=== PATIENT | female | born 1950 | race Caucasian/White ===

== ENCOUNTER 2020-04-29 09:44 | Inpatient (IN) | payer MEDICARE, BC ==
[~2020-04-29] VITALS: Ht 165.1 cm; Wt 120.2 kg
[~2020-04-29 09:44] MED LIST: AMBIEN CR12.5 MG PO; AMLODIPINE BESY10 MG PO; AUGMENTIN 875-1 EACH PO; BACTRIM 400-801 EACH PO; CARAFATE 1 GM TA1 GM PO; CHLORHEXIDINE 0.12% PO; DIFLUCAN150 MG PO; GLIPIZIDE ER10 MG PO; HYDROCODON-ACE1 EAC6 PO; JANUVIA 100 MG100 MG PO; JANUVIA50 MG PO; K-DUR TAB 20 M20 MEQ PO; KEFLEX CAP 500500 MG PO; LANTUS SOL100 UNIT/1 SQ; LASIX TAB 20 MG20 MG PO; NEURONTIN300 MG PO; PHENERGAN 25 MG25 M1 PO; PROTONIX 40 MG40 M1 PO; PROZAC 20 MG CA20 MG PO; SYNTHROID125 MCG PO; TRAMADOL HCL50 MG PO; TRANDATE 300 M300 MG PO; VALIUM 5 MG TAB5 MG PO
[2020-04-29 11:13] LABS: HEMOGLOBIN 9.1 gm/dl (12.3-15.3); RED BLOOD COUNT 3.39 M/UL (4.00-5.10); WHITE BLOOD COUNT 11.1 K/UL (4.5-11.0)
[2020-04-29 11:48] LABS: BUN/CREATININE RATIO 15 (0-10)
[2020-04-29] MEDS ORDERED: JANUVIA100 MG PO (17:02)
[2020-04-29] MEDS ORDERED: LASIX 40 MG TAB40 MG PO (17:07)
[2020-04-30 02:49] LABS: HEMOGLOBIN 8.7 gm/dl (12.3-15.3); RED BLOOD COUNT 3.26 M/UL (4.00-5.10); WHITE BLOOD COUNT 10.2 K/UL (4.5-11.0)
--- NOTE | 2020-04-30 03:32 | NUR ---
NOTIFIED DR DUVALL OF CRITICAL LAB (BUN 104). RECIEVED NO NEW ORDERS. WILL CONTINUE TO MONITOR.
--- NOTE | 2020-04-30 19:09 | NUR ---
NOTIFIED OF LOW BP. CHANGED ADMINISTRATION PARAMETERS OF LABETALOL. WILL CONTINUE TO MONITOR.
[2020-05-02 12:15] LABS: HBSAG SCREEN Negative (Negative); HEP A AB, IGM Negative (Negative); HEP B CORE AB, IGM Negative (Negative); HEP C VIRUS AB <0.1 (0.0-0.9)
[2020-05-04 04:10] LABS: HEMOGLOBIN 9.4 gm/dl (12.3-15.3); RED BLOOD COUNT 3.53 M/UL (4.00-5.10); WHITE BLOOD COUNT 11.4 K/UL (4.5-11.0)
--- NOTE | 2020-05-07 06:35 | NUR ---
0540 HR 120S BP 98/63. DR. WRIGHT NOTIFIED EKG ORDERED. A FIB NOTED WITH HR IN THE 120S. PT ASYMPTOMATIC. NEW ORDER NOTED TO TRANSFER PT TO PCU.
--- NOTE | 2020-05-07 06:37 | NUR ---
PATIENT ARRIVAL FROM [place] [id number] TO FLOOR. HOOK TO MONITOR AND AMIODARONE DRIP STARTED. PATIENT VS FOLLOWS: 119 HR, 99% ON 4L NS; 28 RESPIRATIONS; 115/74 (83) BP. NO CONCERNS NOTED. WILL CONTINUE TO MONITOR
--- NOTE | 2020-05-07 06:38 | NUR ---
0610 PT TRANSFERRED TO PCU BY WAY OF BED. PORTABLE O2 AT 4L/NC IN USE. PT TRANSFERRED TO ROOM 6113.
== END 2020-05-08 15:24 | disposition left against medical advice (07) | DRG 673 ==
LOC: ER1 09:44 → M/S 12:57 → PROG CARE 13:11 → CDU 13:11 → M/S 13:11 → PROG CARE 05-07 06:11
PROVIDERS: Internal Medicine; Internal Medicine Nephrology; Physician Assistant; Surgery; ADMIT Internal Medicine
PROC: 05HM03Z Insertion of Infusion Device into Right Internal Jugular Vein, Open Approach (ICD-10-PCS; 2020-05-04)
PROC: 5A1D70Z Performance of Urinary Filtration, Intermittent, Less than 6 Hours Per Day (ICD-10-PCS; 2020-05-04)
PROC: 0JH63XZ Insertion of Tunneled Vascular Access Device into Chest Subcutaneous Tissue and Fascia, Percutaneous Approach (ICD-10-PCS; principal; 2020-05-04 07:30)
PROC: 5A1D70Z Performance of Urinary Filtration, Intermittent, Less than 6 Hours Per Day (ICD-10-PCS; 2020-05-05)
PROC: 5A1D70Z Performance of Urinary Filtration, Intermittent, Less than 6 Hours Per Day (ICD-10-PCS; 2020-05-07)
DX: N17.0 Acute kidney failure with tubular necrosis (principal); G93.41 Metabolic encephalopathy; C90.00 Multiple myeloma not having achieved remission; J96.10 Chronic respiratory failure, unspecified whether with hypoxia or hypercapnia; I13.0 Hypertensive heart and chronic kidney disease with heart failure and stage 1 through stage 4 chronic kidney disease, or unspecified chronic kidney disease; E87.2 Acidosis; L03.115 Cellulitis of right lower limb; Z68.41 Body mass index [BMI] 40.0-44.9, adult; E87.1 Hypo-osmolality and hyponatremia; I50.32 Chronic diastolic (congestive) heart failure; I12.0 Hypertensive chronic kidney disease with stage 5 chronic kidney disease or end stage renal disease; N18.6 End stage renal disease; D63.1 Anemia in chronic kidney disease; E03.9 Hypothyroidism, unspecified; E11.22 Type 2 diabetes mellitus with diabetic chronic kidney disease; J44.9 Chronic obstructive pulmonary disease, unspecified; Z66 Do not resuscitate; Z20.822 Contact with and (suspected) exposure to COVID-19; I87.8 Other specified disorders of veins; I48.91 Unspecified atrial fibrillation; R60.1 Generalized edema; I27.20 Pulmonary hypertension, unspecified; G47.33 Obstructive sleep apnea (adult) (pediatric); E87.70 Fluid overload, unspecified; E66.01 Morbid (severe) obesity due to excess calories; Z99.81 Dependence on supplemental oxygen; Z79.4 Long term (current) use of insulin; Z79.899 Other long term (current) drug therapy; Z90.710 Acquired absence of both cervix and uterus; Z98.890 Other specified postprocedural states; Z83.3 Family history of diabetes mellitus; Z82.49 Family history of ischemic heart disease and other diseases of the circulatory system
CPT/HCPCS: ECHO; 36415; 36600; 70450; 71045; 77001; 80048; 80053; 80074; 81001; 82550; 82553; 82570; 82803; 82962; 83036; 83605; 83735; 83874; 83880; 84133; 84156; 84300; 84439; 84443; 84484; 85025; 85027; 87040; 90937; 93005; 93306; 94640; 94660; 94760; 96374; 96375; 97162; 99285; C1750; C1769; J0696; J1644; J2001; J2020; J2405; J2704; J3475; J7040; J7070; J7120; P9047; U0002